=== PATIENT | male | born 1930 | race Caucasian/White ===

== ENCOUNTER 2016-07-25 16:51 | Inpatient (IN) | payer MEDICARE, BC ==
[~2016-07-25] VITALS: Ht 170.2 cm; Wt 63.9 kg
--- NOTE | ~2016-07-25 | ECH ---
Transthoracic Echocardiography Report (TTE) Demographics Patient Name LAMONTE CHAKRABORTY Date of Study 07/27/2016 Patient Number [id number] Visit Number [id number] Date of 1930 Room Number 315 Accession Number [id number] Gender Male Age 85 year(s) Referring Anthony Paul Lease Picker Shazia Reyez [facility] Physician MD Gislee Kothari Physician Interpreting Catherine Anderson MD [employer] Physician Supervising Ordering Physician Anthony Paul MD/DIANNA FERRER Nurse Stress Charge Operator Conclusions Summary Technically adequate exam. The estimated left ventricular ejection fraction is 25-30%. Mild left ventricular hypertrophy. Diastolic assessment reveals Grade I diastolic dysfunction. Mildly dilated right ventricle. Mildly reduced right ventricular function. The left atrium is moderately dilated by LA volume index measurement. The right atrium is mild to moderately dilated. Mild-moderate tricuspid regurgitation by color Doppler. There is mild pulmonary hypertension. The pulmonary pressure (RVSP) is 47 mmHg. Procedure Type of Study TTE procedure:Echo Complete SF. Procedure Date Date: 07/27/2016 Start: 02:53 PM Technical Quality: Good visualization Indications:Elevated Troponin, Shortness of breath and Ischemic Cardiomyopathy. Additional Indications:hypoxia Appropriate Use Criteria: 9 Height: 67 inches Weight: 128 pounds BSA: 1.67 m Rhythm: Sinus with bundle branch block HR: 61 bpm BP: 102/59 mmHg M-Mode/2D Measurements LV Diastolic Dimension: 4.8 cm LV Systolic Dimension: 3.96 cm LV Septum Diastolic: 1.14 cm LV PW Diastolic: 1.17 cm AO Root Dimension: 2.97 cm Cardiac Output: 4.34 l/min LA Dimension: 3.95 cm Cardiac Index: 2.6 l/min*m RV Diastolic Dimension: 3.09 cm LA volume index: 43 ml/m LVOT: 2.33 cm LVOT VTI: 16.7 cm RV Base: 4.9 cm LV Stroke volume: 71.17 ml RV Mid: 3.2 cm LV Stroke volume index: 42.62 ml/m RV Length: 6.4 cm TAPSE: 1.36 cm TDI-S': 0.7 cm/s Doppler Measurements AV Peak Velocity: 1.05 m/s MV Peak E-Wave: 0.56 m/s AV Peak Gradient: 4.41 mmHg MV Peak A-Wave: 0.87 m/s AV Mean Gradient: 2.68 mmHg MV E/A Ratio: 0.64 LVOT Peak Velocity: 0.76 m/s MV P1/2t: 80.2 msec AV Area (Continuity):4.04 cm MV Deceleration Time: 276.5 msec TR Velocity:3.32 m/s MV Area (PHT): 2.74 cm TR Gradient:44.21 mmHg PV Peak Velocity: 1.04 m/s Estimated RAP:3 mmHg PV Peak Gradient: 4.33 mmHg Estimated RVSP: 47 mmHg Estimated PASP: 47.21 mmHg RA Area: 22.59 cm Findings Left Ventricle The left ventricle is normal in size . Mild left ventricular hypertrophy. Diastolic assessment reveals Grade I diastolic dysfunction. Right Ventricle Mildly dilated right ventricle. Mildly reduced right ventricular function. Left Atrium The left atrium is moderately dilated by LA volume index measurement. Right Atrium The right atrium is mild to moderately dilated. Mitral Valve Normal mitral valve structure and function. Mild mitral regurgitation by color Doppler. Aortic Valve Normal aortic valve structure and function. Tricuspid Valve Normal tricuspid valve structure and function. Mild-moderate tricuspid regurgitation by color Doppler. There is mild pulmonary hypertension. The pulmonary pressure (RVSP) is 47 mmHg. Pulmonic Valve Normal pulmonic valve structure and function. Pericardial Effusion No evidence of pericardial effusion. Miscellaneous Visualized portions of the aortic root and ascending aorta appear normal in size. Pleural Effusion No evidence of pleural effusion. Contractility Score LV regional wall motion:(0-Non visualized 1-Normal 2-Hypokinesis 3-Akinesis 4-Dyskinesis 5-Aneurysm) Signature
--- NOTE | 2016-08-01 08:32 | CO ---
ADMIT: 07/25/2016 RM/LOC: 315 [facility] MR#: [id number] [address] [address] LAMONTE WILLETT [address] [place] [address] Consultation SEX: M AGE: 85 : 1930 DATE OF CONSULTATION: 07/31/2016 ATTENDING PHYSICIAN: David Cruz CONSULTING PHYSICIAN: Julio Miles MD HISTORY OF PRESENT ILLNESS: Mr. Willett is a pleasant, unfortunate, 85-year- old, white male with multiple medical problems, including history of hypertension, coronary artery disease with previous bypass surgery, diabetes mellitus type 2, chronic renal insufficiency, peripheral vascular disease, abdominal aortic aneurysm, and COPD. He was admitted to the hospital on 07/25/2016 with increasing shortness of breath and left leg swelling. He has been apparently getting progressively worse over the last several days prior to entry into the hospital. He subsequently had venous Doppler studies of his left lower extremity, demonstrating fairly extensive large left lower extremity clot. He was also noted to be hypoxemic, and CT angiogram was performed showing extensive bilateral pulmonary embolism. He had been placed on IV heparin, and subsequently transitioned to oral warfarin with therapeutic INR. Today, he developed sustained episodes of hypotension with blood pressures in the 80s. He was seen in consultation. He was given IV fluid bolus with improvement of his blood pressure. Symptomatically, he denies significant shortness of breath. He is not having any chest pain. Denies lightheadedness or dizziness. He is having cough which is intermittently productive of clear to white to occasionally yellow phlegm and mucus. PAST MEDICAL HISTORY: Significant for hypertension, diabetes mellitus type 2, coronary artery disease with previous multivessel bypass. He also has a history of peripheral vascular disease. He has history of an abdominal aortic aneurysm. He has chronic renal insufficiency (stage 3), and peripheral vascular disease. Additionally, he has early senile dementia. Carries a diagnosis of pulmonary fibrosis. He has had previous bilateral iliac stents, left carotid endarterectomy, and 3-vessel coronary bypass. ALLERGIES: LISTED MEDICAL ALLERGY TO ZOCOR. HOME MEDICATIONS: Reviewed in electronic medical records include: 1. Rosuvastatin 5 mg daily. 2. Lisinopril 40 mg daily. 3. Potassium chloride 10 mEq daily. ADMIT: 07/25/2016 RM/LOC: 315 [facility] MR#: [id number] [address] [address] LAMONTE WILLETT [address] [place] [address] Consultation SEX: M AGE: 85 : 1930 4. Oxybutynin 10 mg daily. 5. Hydroxyurea 500 mg daily. 6. Metformin 500 mg daily. 7. Furosemide 40 mg daily. 8. Amlodipine 5 mg daily. 9. Omeprazole 20 mg daily. SOCIAL HISTORY: He is single. He has been a heavy smoker, and reportedly was smoking up until several days prior to entry into the hospital. FAMILY HISTORY: Noncontributory. REVIEW OF SYSTEMS: As above. A 12-point review of systems performed, significant positives and negatives discussed above. He does not normally wear oxygen at home. He does have previous history of thrombophilia, and is on daily hydroxyurea for this. Does have history of gastroesophageal reflux, not currently symptomatic. Was having some problems with diarrhea and nausea with some emesis prior to entry into the hospital. PHYSICAL EXAMINATION: VITAL SIGNS: He was afebrile. Temperature of 96.4, blood pressure 85/45, pulse of 92, oxygen saturation currently 98% on 5 L of supplemental oxygen. GENERAL: This is a well-developed, well-nourished, pleasant white male, currently in no obvious acute respiratory distress. HEENT: Shows head to be normocephalic, atraumatic. Number of superficial basal cell cancers noted. Pupils are otherwise equal and reactive. Poor oral dentition is noted with a number of decaying teeth. NECK: Supple without adenopathy. CHEST: Reveals bilateral rales and rhonchi. Cough was elicited on conversation on deep breathing. HEART: Regular, slightly tachycardic. No murmur. ABDOMEN: Soft, nondistended, and nontender without organomegaly or masses. EXTREMITIES: Reveal 3+ lower extremity edema. Venous congestion is noted bilaterally. Does move all extremities. He has a number of ecchymotic areas. ASSESSMENT: He was admitted with acute extensive left deep venous thrombosis, started on IV heparin. Subsequent CT angiogram of his chest demonstrates bilateral pulmonary embolism. He has been continued on the IV heparin and then switched over to oral warfarin with currently a therapeutic INR. He has significant history of coronary artery disease, previous multivessel bypass. Echocardiogram shows significant systolic congestive heart failure with an ejection fraction between 25% to 30%. Also findings noted on the echocardiogram of mild pulmonary hypertension with right ventricular systolic pressure of 47 mmHg with some dilation of right ventricle. ADMIT: 07/25/2016 RM/LOC: 315 [facility] MR#: [id number] [address] [address] LAMONTE WILLETT [address] [place] [address] Consultation SEX: M AGE: 85 : 1930 He now has hypotension, and this is most likely related to combination of his heart failure as well as his acute PE. He has responded to fluid bolus, and at this point if he continues to be hypotensive, initiation of norepinephrine (Levophed) would be the drug of choice to maintain blood pressure. If this does not work, then sometimes dobutamine can also be added to Levophed to help improve contractility. Try and avoid inotrophic agents such as dopamine as this may cause tachycardia and result in natural decline in blood pressure. He has multiple other medical problems mentioned above, these are currently being treated. We will otherwise continue to follow here with you in the ICU for further recommendations following initial response to treatments and therapies. Julio Miles MD/ hattie JOB #: [id number] CC: David Cruz, Attending Physician David Cruz, Family Physician
--- NOTE | 2016-08-02 15:07 | CO ---
ADMIT: 07/25/2016 RM/LOC: 507 [id number] [id number] [address] [address] LAMONTE CHAKRABORTY [address] [place] [address] Consultation SEX: M AGE: 85 : 1930 DATE OF CONSULTATION: 07/27/2016 ATTENDING PHYSICIAN: David Cruz CONSULTING PHYSICIAN: Taye Jaquez MD REASON FOR CONSULTATION: Questionable congestive heart failure. HISTORY OF PRESENT ILLNESS: The patient presented to the hospital yesterday, July 25, for hypertension and shortness of breath. The patient was last seen by Dr. Cruz on July 25 for thrombophlebitis in the left lower leg. The patient denies any history of blood clots. However, he admits that he has been heavy smoker until about 1 month ago when he quit. Dr. Cruz wanted Cardiology to consult on this patient due to his elevated troponin, which was 0.418. Also, due to his increasing in peripheral edema in his lower legs. PAST MEDICAL HISTORY: Significant for hypertension, hypercholesterolemia, type 2 diabetes, chronic edema, GERD. He admits that he has had abdominal aortic aneurysm, bilateral iliac stent placement with popliteal occlusion and a left carotid endarterectomy. Urinary incontinence, edema, bilateral hearing loss, memory problems, COPD, carotid artery stenosis, renal insufficiency, pulmonary fibrosis, and peripheral vascular disease. PAST SURGICAL HISTORY: Includes bilateral iliac stent placement with popliteal occlusion, left carotid endarterectomy, and heart catheterization. ALLERGIES: ZOCOR. HOME MEDICATIONS: Consist of: 1. Rosuvastatin 5 mg. 2. Lisinopril 40 mg. 3. Potassium chloride 10 mEq. 4. Oxybutynin ER 10 mg. 5. Metformin. 6. Hydroxyurea 500 mg. 7. Furosemide 40 mg. 8. Amlodipine 5 mg p.o. 9. Omeprazole 20 mg p.o. 10.The patient is also on heparin. FAMILY HISTORY: Heart disease, dementia, and diabetes. SOCIAL HISTORY: The patient denies alcohol or drug use. The patient has been a life time heavy smoker until about 1 month ago when he quit. The patient is single. He consumes a regular diet and regular exercise. The patient also consumes coffee on a regular basis. REVIEW OF SYSTEMS: GENERAL: The patient reports some aching in his lower legs that is causing some discomfort. He has noticed a productive cough. The ADMIT: 07/25/2016 RM/LOC: 507 [facility] MR#: [id number] [address] [address] LAMONTE CHAKRABORTY [address] [place] [address] Consultation SEX: M AGE: 85 : 1930 patient denies fever, hemoptysis, confusion, or dysuria. LUNGS: The patient reports shortness of breath with the cough. lymphadenopathy. LYMPHATICS: The patient has peripheral edema with erythema in the medial malleolus of the left lower leg. EYES: Denies double vision, blurred vision, cataracts, or glaucoma. ENT: Denies hearing loss or problems with nose, mouth or throat. GASTROINTESTINAL: Denies heartburn or difficulty swallowing. No change in bowel habits. Denies dark or bloody stools. No history of ulcers, hiatal hernia, or gallbladder or liver disease. GENITOURINARY: Denies dysuria, hematuria, nocturia, urinary tract infection, or kidney stones. Denies history of renal insufficiency or failure. MUSCULOSKELETAL: Denies history of arthritis or gout. Denies muscle or joint pains. ENDOCRINE: Denies history of thyroid dysfunction or diabetes. HEMATOLOGIC: Denies history of anemia, easy bruising, or cancer. NEUROLOGIC: Denies chronic headaches, dizziness, syncope, stroke, seizures or numbness or tingling. PSYCHIATRIC: Denies history of mental illness or feelings of depression. PHYSICAL EXAMINATION: Per Dr. Jaquez. VITAL SIGNS: Temperature 97.9, pulse 82, respirations 20, blood pressure 102/59, and O2 saturations 88% on 3 liters of oxygen via nasal cannula. Blood pressure was retaken in the left arm and the result was 78/48 and that was manually. Blood pressure was also taken in the right arm and the result was 90/58. GENERAL: The patient is alert and oriented x3. No acute distress. Pleasant. HEENT: No bruits were audible. PERRLA. Head normocephalic. HEART: Had distant heart sounds. No murmurs, gallops, or rubs were audible. ABDOMEN: Soft, nontender, and nondistended. Bowel sounds were audible. LUNGS: Coarse sounding cough. Productive with deep breathing. EXTREMITIES: Bilateral edema 2+ in the right lower foot and 3+ in the left lower leg. There was erythema in the left medial malleolus. SKIN: [place], warm and dry. EYES: Sclerae clear. No xanthelasmas. ENT: Oral mucosa is pink and moist. No jugular venous distention. MUSCULOSKELETAL: Gait is normal. PSYCHIATRIC: Alert and oriented. Mood and affect are appropriate. DIAGNOSTIC DATA: Hemoglobin 19, hematocrit 56, white blood cell count 17.9, and platelets are 322. Sodium 137, potassium is 4.4, chloride is 104, bicarb is 25, BUN is 46, creatinine 1.1, glucose is 148. Troponin was 0.418, calcium is 7.3, GFR is 61. BNP is 101, pro-BNP 5722. PT 13, INR is 1.24, and PTT is 74.1. Albumin is 1.9. Chest x-ray on 07/26/2016, demonstrated mild cardiomegaly with interstitial markings prominent. Interstitial edema progressed from the last film. ADMIT: 07/25/2016 RM/LOC: 507 [facility] MR#: [id number] [address] [address] LAMONTE CHAKRABORTY [address] [place] [address] Consultation SEX: M AGE: 85 : 1930 ASSESSMENT AND PLAN: Per Dr. Jaquez. 1. Hypoxic respiratory failure. 2. Deep venous thrombosis. 3. Elevated troponin. 4. History of coronary artery disease and coronary artery bypass grafting. 5. History of abdominal aortic aneurysm. The patient has extensive DVT and with low blood pressure and hypoxia, I am concerned about PE. He is on heparin and Coumadin. We will do a CTA and echo. I suspect elevated troponin is secondary to hypoxia and possible PE. We will continue to follow this patient and provide full supportive care. Thank you for the Cardiology consult. I have read and agreed with the documentation that has been completed regarding this visit. By signing this record, I attest that the documentation was completed in my physical presence and is an accurate record of the encounter. QUANG Mandel Student / Taye Jaquez MD / hattie JOB #: [id number] CC: David Cruz, Attending Physician David Cruz, Family Physician
--- NOTE | 2016-08-07 11:26 | CO ---
ADMIT: 07/25/2016 RM/LOC: 511 [facility] MR#: [id number] [address] [address] LAMONTE WILLETT [address] [place] [address] Consultation SEX: M AGE: 85 : 1930 DATE OF CONSULTATION: 08/04/2016 ATTENDING PHYSICIAN: David Cruz CONSULTING PHYSICIAN: Corazon Antonio, ELIO TIME OUT: 1245 hours. TIME-OUT: 1315 hours. REASON FOR CONSULTATION: Supportive care consultation was requested by Dr. Cruz for discussion of goals for care. PRESENT ILLNESS: Mr. Willett is an 85-year-old male with history of mild dementia as well as hypertension, coronary artery disease, diabetes mellitus type 2, chronic kidney disease, COPD, PVD as well as heart failure with a known ejection fraction of 25% to 30%. He was admitted to the hospital from home on 07/25 with increasing shortness of breath and left leg swelling. Evaluation did reveal a left lower extremity DVT as well as bilateral pulmonary embolisms. Speech Therapy has been following him and he unfortunately failed his MBS yesterday. At this point, the patient has directed that he does not want to receive a feeding tube and has instead decided to pleasure eat with the known risk of aspiration. Due to his complexities, supportive care consultation was requested to discuss goals for care. In terms of advanced directives, the patient is a do not resuscitate/do not intubate status. The patient does have a durable [id number] for healthcare, who is his nephew Hipolito Reese whose phone# [phone]. I do not have the actual health care [id number] paperwork in hand. However, both the patient and his nephew verify that this is the case. The patient also indicates that he has a living will, however I do not have a copy of this. Symptomatically, the patient reports that he is comfortable. He is very weak and debilitated. PAST MEDICAL HISTORY: Extensive and includes; 1. Hypertension. 2. Type 2 diabetes mellitus. 3. Arthritis. 4. Bilateral hearing loss. 5. Carotid artery stenosis. 6. Memory problems. 7. COPD. 8. Hypertension. 9. AAA. 10.Ischemic heart disease. 11.Renal insufficiency. ADMIT: 07/25/2016 RM/LOC: 511 [facility] MR#: [id number] [address] [address] LAMONTE WILLETT [address] [place] [address] Consultation SEX: M AGE: 85 : 1930 12.PVD. 13.Pulmonary fibrosis. PAST SURGICAL HISTORY: 1. Bilateral iliac stent placement with popliteal occlusion. 2. Left carotid atherectomy. 3. Heart catheterization. 4. Three vessel CABG. ALLERGIES: THE PATIENT IS APPARENTLY ALLERGIC TO IV CONTRAST AND IN THE NOTES IT LOOKS LIKE HE HAS NOT TOLERATED ZOCOR WELL IN THE PAST. CURRENT MEDICATIONS: Please see the patient's MAR for specific routes and dosages. His current medications are as follows. 1. Coreg. 2. Colace. 3. Maalox. 4. Dulcolax. 5. Nitro-Bid. 6. MiraLax. 7. Glucophage. 8. Lasix. 9. Neurontin. 10.Ultram. 11.Glutose. 12.Glucagon. 13.D5 normal saline. 14.D50. 15.NovoLog. 16.Levaquin. 17.Rocephin. 18.Aspirin. 19.Protonix. 20.Crestor. 21.Hydrea. 22.Tylenol. 23.Nitrostat. 24.D5LR. FAMILY HISTORY: Positive for heart disease, dementia, and diabetes. SOCIAL HISTORY: The patient has been living at home up until this hospital stay, but in discussion with his nephew it sounds like he was needing quite a bit of assistance with ADLs. They were helping with dressing and bathing. His palliative performance scale prior to admission was around 40% to 50%. Currently, his palliative performance score remains around 40% to 50%. REVIEW OF SYSTEMS: A 10-point review of systems was completed and other than ADMIT: 07/25/2016 RM/LOC: 511 [facility] MR#: [id number] [address] [address] LAMONTE WILLETT [address] [place] [address] Consultation SEX: M AGE: 85 : 1930 those pertinent positives and negatives mentioned the HPI, it is negative. PHYSICAL EXAMINATION: GENERAL: The patient is examined in the chair. He is in no acute distress. VITAL SIGNS: Temperature 97.7, pulse 91, respirations 20, blood pressure 96/58, oxygen 100% on 6 L per nasal cannula. HEENT: Head is normocephalic. Pupils are 3 mm bilaterally and brisk. Oral mucosa pink and moist. NECK: Supple. RESPIRATORY: Respirations are equal and nonlabored at rest. LUNGS: Coarse bilaterally. CARDIOVASCULAR: Rate and rhythm regular without murmurs, rubs, or gallops. GASTROINTESTINAL: Soft, nontender. Bowel sounds are positive. MUSCULOSKELETAL: Generalized weakness. No obvious joint deformities. INTEGUMENTARY: Skin turgor is fair. No rashes or wounds noted. NEUROLOGIC: Oriented to place, but states the year is 2016. He is a little forgetful. He has a hard time recalling details of prior conversations. PSYCHIATRIC: Calm and cooperative. No agitation or delirium noted. DIAGNOSTIC DATA: Sodium 137, potassium 4.2, BUN 33, creatinine 0.8, total protein 6.2, albumin 1.9. WBC is 9.9, hemoglobin 12.7, hematocrit 42.7, platelets are 412. IMPRESSION: 1. Physical debility. 2. Dysphagia with aspiration. 3. Malaise. 4. Fatigue. 5. Severe protein-calorie malnutrition. 6. Pulmonary embolism/deep vein thrombosis. 7. Heart failure. 8. Chronic obstructive pulmonary disease. 9. Abdominal aortic aneurysm. 10.Chronic kidney disease. 11.Diabetes mellitus type 2. 12.Peripheral vascular disease. 13.Mild dementia. 14.Palliative care. 15.The patient is a DNR/DNI. PLAN OF TREATMENT: 1. I was able to meet with the patient first at the bedside and we reviewed his overall status and goals for the time ahead. As mentioned, he is mildly confused. However, in discussion he is clear that he is interested in focusing more on comfort in the time ahead. He understands that he has many medical issues that complicates his care. He is very clear that he would not want a feeding tube and prefers a pleasure diet. I was able to call the patient's nephew and we discussed the patient's ADMIT: 07/25/2016 RM/LOC: 511 [facility] MR#: [id number] [address] [place] [address] LAMONTE WILLETT [address] [place] [address] Consultation SEX: M AGE: 85 : 1930 overall goals and plans for the time ahead. He is aware of the high risk for ongoing decline with the patient's known aspiration and multiple medical issues. At this point, his goals for the time ahead is to get the patient to rehab to see how he does. However, if he declines, he would likely not pursue rehospitalization for the patient and instead would transfer into hospice care. We did review the hospice philosophy and benefit at length and he is understanding of this. He denies any questions and is appreciative of supportive care consultation. I have updated social work on the discussion that I had with the patient's nephew. 2. We will follow along and assist with any future goals for care as needed. We would like to thank Dr. Cruz for the invitation to participate in this patient's care. Total consultation time was 30 minutes from 1245 hours to 1315 hours with 20 minutes from 1247 hours to 1307 hours spent [id number] with the patient and his family discussing goals for care and providing counseling and support. Corazon Antonio APRN/ baciliol JOB #: [id number] CC: David Cruz, Attending Physician David Cruz, Family Physician
--- NOTE | 2016-08-07 11:33 | DS ---
ADMIT: 07/25/2016 RM/LOC: 511 [facility] [place]#: [id number] [facility]#: [id number] [address] [address] LAMONTE CHAKRABORTY [address] [place] [address] Discharge Summary SEX: M AGE: 85 : 1930 ADMISSION DATE: 07/25/2016 DISCHARGE DATE: 08/05/2016 HISTORY AND PHYSICAL: Please see the chart. LABORATORY AND X-RAY DATA: Please see the chart. CLINICAL COURSE: This 85-year-old male was admitted initially with dyspnea, cough, shortness of breath and was felt to have a pneumonia. The patient also had edema and had a deep vein thrombophlebitis. A CT scan of the chest was consistent with pulmonary emboli. The patient was treated for pulmonary emboli and pneumonia and was placed on heparin followed by Coumadin. He was also placed on Rocephin and Levaquin. The patient had been a heavy smoker all of his life and has a history of COPD. He also has a history of essential thrombocytosis and has been on Hydrea 500 mg daily. The patient was continued on his Hydrea. His blood sugars were followed. He had an abdominal aortic aneurysm, which is under 5 cm and was rechecked during the hospitalization. She has a history of ischemic heart disease. He had problems with memory. He also was found to have some difficulty swallowing, and a modified barium swallow was done, which showed some aspiration. I spoke with the patient and his nephew about a PEG tube, and the patient had absolutely no interest in any kind of a feeding tube. It was explained the risks of aspiration and recurring pneumonia, and the patient was insistent. He did not want any type of feeding tube, and in fact, he did not want to be intubated nor resuscitated. Supportive Care was also asked to see the patient. The patient continued to improve. His x-ray improved, and he was placed on Coumadin, which will be given 3 mg daily. He also had difficulty with urine, was found to have an enlarged prostate and was started on Flomax 0.4 mg daily. Urologist did see the patient in consultation. At the time of discharge, he was feeling much better, no dyspnea. He will be discharged on: 1. Aspirin 81 mg daily. 2. Coumadin 3 mg daily. 3. Coreg 3.125 mg b.i.d. if the blood pressure is over 100. 4. Glucophage a 1000 mg daily. 5. Hydrea 500 mg daily. 6. Neurontin 300 mg t.i.d. 7. Protonix 40 mg daily. 8. Lasix 40 mg orally daily. 9. Levaquin 500 mg orally for 3 more days then discontinue. 10.No more IV fluids. The patient will continue to be DNR and DNI. He will be seen in the office in 2 weeks. FINAL DIAGNOSIS: 1. Pulmonary emboli. ADMIT: 07/25/2016 RM/LOC: 511 [facility] [place]#: [id number] [address] [place] [id number] LAMONTE CHAKRABORTY [address] [place] [address] Discharge Summary SEX: M AGE: 85 : 1930 2. Deep vein thrombophlebitis. 3. Severe COPD (chronic obstructive pulmonary disease). 4. Ischemic heart disease. 5. Type 2 diabetes mellitus. 6. Peripheral neuropathy. 7. Essential thrombocytosis. 8. Memory loss. 9. Bilateral hearing loss. 10.Carotid artery stenosis. 11.Abdominal aortic aneurysm. 12.Hypertension. 13.History of renal insufficiency. David Cruz MD/ trung JOB #: [id number] CC: David Cruz MD, Attending Physician David Cruz MD, Family Physician
--- NOTE | 2016-08-07 11:33 | HP ---
ADMIT: 07/25/2016 RM/LOC: 507 [facility] MR#: [id number] [facility]#: [id number] [address] [facility] [address] [place], [place] [address] LAMONTE CHAKRABORTY [address] [place] [address] History and Physical SEX: M AGE: 85 : 1930 DATE OF SERVICE: COMPLAINT/HISTORY OF PRESENT ILLNESS: This 85-year-old male came to the office today with pain and swelling of his left leg. He also had been having diarrhea today. He just started with nausea and vomiting. He had been feeling poorly for the last 2 days. He was sent to the hospital for an ultrasound of his leg, which was consistent with an extensive clot in the left leg extending into the pelvis. PREVIOUS MEDICAL HISTORY: The patient has been in poor health. He has had longstanding hypertension. He has type 2 diabetes mellitus. Other problems include arthritis, bilateral hearing loss, carotid artery stenosis, memory problems, COPD, and just stopped smoking a month ago. He has hypertension and ischemic heart disease. He has had abdominal aortic aneurysm. He has renal insufficiency, prostatic hypertrophy, type 2 diabetes mellitus, pulmonary fibrosis, and peripheral vascular disease. PAST SURGICAL HISTORY: Include bilateral iliac stent placement with popliteal occlusion, left carotid end arterectomy, heart catheterization, and 3-vessel CABG. ALLERGIES: THE PATIENT HAS NOT TOLERATED ZOCOR IN THE PAST. FAMILY HISTORY: Positive for heart disease, dementia, and diabetes. SOCIAL HISTORY: The patient has been a heavy smoker all of his life until the last month. He is single. He does not drink alcohol. MEDICATIONS: Include: 1. Hydrea 500 mg daily. 2. Lasix 40 mg daily. 3. Potassium chloride 10 mEq daily. 4. Amlodipine 5 mg daily. 5. Lisinopril 40 mg daily. 6. Prilosec 20 mg daily. 7. Crestor 5 mg daily. 8. Ditropan 10 mg XL daily. 9. Nitrostat p.r.n. 10.Metformin 500 mg 1 daily. 11.Neurontin 300 mg b.i.d. 12.Aspirin 81 mg daily. 13.Vitamin B daily. 14.Coreg 3.125 mg daily. Other history includes depression, memory loss, and actinic keratosis. REVIEW OF SYSTEMS: HEENT: The patient had memory loss, hearing loss, wears glasses. CARDIORESPIRATORY: The patient has been a heavy smoker all of his life. He ADMIT: 07/25/2016 RM/LOC: 507 [facility] MR#: [id number] [address] [address] LAMONTE CHAKRABORTY [address] [place] [address] History and Physical SEX: M AGE: 85 : 1930 has a history of COPD and pulmonary fibrosis. He has had hypertension. He has had an abdominal aortic aneurysm. He has had CABG. GASTROINTESTINAL: The patient has a history of GERD. He also has had a recent diarrhea in the last 24 hours. He has also just started vomiting. He had vomited no blood and no blood in the stools. GENITOURINARY: The patient has renal insufficiency. METABOLIC/ENDOCRINE: The patient has type 2 diabetes mellitus and hypercholesterolemia. NEUROMUSCULAR: The patient has a history of a neuropathy. PHYSICAL EXAMINATION: VITAL SIGNS: Blood pressure is 120/64, temperature 97.8, and weight is 141 pounds, and the patient has had weight loss in the last month. GENERAL: The patient is a chronically ill-appearing male, who is cooperative. He is alert. HEENT: Head - normocephalic without exostoses. ROSIE. Throat within normal limits. His mouth is somewhat dry. NECK: Neck veins are not distended. CHEST: Rales and rhonchi bilaterally. No wheezes are heard. HEART: There was a regular rhythm. No murmur is heard. ABDOMEN: Soft, nontender. Liver is not enlarged. Spleen is not palpable. No abnormal masses are palpated. Femoral pulses are strong and equal bilaterally. GENITALIA: Normal. EXTREMITIES: No cyanosis, clubbing or edema. Left leg is quite erythematous, tender, and swollen. ASSESSMENT: 1. Left deep vein thrombophlebitis. 2. Chronic obstructive pulmonary disease. 3. Ischemic heart disease. 4. Type 2 diabetes mellitus. 5. History of renal insufficiency. 6. Generalized arterial sclerosis. 7. Gastroesophageal reflux disease. 8. History of renal insufficiency. 9. History of abdominal aortic aneurysm. 10.History of left inguinal hernia. David Cruz MD/ hattie JOB #: [id number] CC: David Cruz, Attending Physician David Cruz, Family Physician
== END 2016-08-05 12:27 | DRG 175 ==
LOC: RAD.S 16:51 → 5MS 18:19 → 3ICU 18:19 → 5MS 08-03 17:49
DX: I26.99 Other pulmonary embolism without acute cor pulmonale (principal); J96.91 Respiratory failure, unspecified with hypoxia; E43 Unspecified severe protein-calorie malnutrition; J18.9 Pneumonia, unspecified organism; L89.323 Pressure ulcer of left buttock, stage 3; I82.412 Acute embolism and thrombosis of left femoral vein; I95.9 Hypotension, unspecified; I27.2 Other secondary pulmonary hypertension; F03.90 Unspecified dementia, unspecified severity, without behavioral disturbance, psychotic disturbance, mood disturbance, and anxiety; E11.22 Type 2 diabetes mellitus with diabetic chronic kidney disease; I82.432 Acute embolism and thrombosis of left popliteal vein; J84.10 Pulmonary fibrosis, unspecified; I71.4 Abdominal aortic aneurysm, without rupture; M19.90 Unspecified osteoarthritis, unspecified site; H91.93 Unspecified hearing loss, bilateral; I65.29 Occlusion and stenosis of unspecified carotid artery; I25.10 Atherosclerotic heart disease of native coronary artery without angina pectoris; R13.10 Dysphagia, unspecified; J44.9 Chronic obstructive pulmonary disease, unspecified; E83.42 Hypomagnesemia; I25.9 Chronic ischemic heart disease, unspecified; I44.7 Left bundle-branch block, unspecified; I25.5 Ischemic cardiomyopathy; R79.89 Other specified abnormal findings of blood chemistry; N40.0 Benign prostatic hyperplasia without lower urinary tract symptoms; I73.9 Peripheral vascular disease, unspecified; E78.00 Pure hypercholesterolemia, unspecified; F32.9 Major depressive disorder, single episode, unspecified; L57.0 Actinic keratosis; K21.9 Gastro-esophageal reflux disease without esophagitis; N18.9 Chronic kidney disease, unspecified; I12.9 Hypertensive chronic kidney disease with stage 1 through stage 4 chronic kidney disease, or unspecified chronic kidney disease; Z95.1 Presence of aortocoronary bypass graft; Z79.84 Long term (current) use of oral hypoglycemic drugs; Z87.891 Personal history of nicotine dependence; Z95.820 Peripheral vascular angioplasty status with implants and grafts; Z66 Do not resuscitate